=== PATIENT | female | born 1975 | race American Indian/Alaskan Native ===

== ENCOUNTER 2018-06-21 18:31 | Emergency (ER) | payer BC, OTHER ==
[2018-06-21 18:41] VITALS: BP 129/81
[2018-06-21] MEDS ORDERED: IBUPROFEN PO ONE (19:32)
[2018-06-21] MEDS ORDERED: DELTASONE PO ONE (19:32)
[2018-06-21] MEDS ORDERED: PROVENTIL IH ONE (19:32)
--- NOTE | 2018-06-21 19:58 | Emergency Department Report ---
Upper Respiratory HPI - HPI Chief Complaint: Upper Respiratory Infection Stated Complaint: CHEST PAIN/HEADACHE Time Seen by Provider: 06/21/18 19:30 Duration: 4 Days URI Symptoms: Rhinorrhea: Yes, Sore Throat: Yes, Ear Pain: No, Cough: Yes, Shortness of Breath: Yes, Sick Contacts: Yes, Unable to Take Fluids: No, Urine Output Abnormal: No, Listless Behavior: No Other History: Patient is a 43-year-old female who presents with URI symptoms cough fever chills sore throat shortness of breath wheezing for the past 5 days that was exacerbated by environmental exposure shows relieved by nothing cough is now causing chest pain with cough only prompting patient to report to ED for evaluation - Home Meds and Allergies Home Medications: Previous Rx's Medication Instructions Recorded Last Taken Type Pantoprazole [Protonix TAB] 40 mg PO QDAY #30 tablet 09/04/14 Unknown Rx Sucralfate [Carafate] 1 gm PO Q6HR #300 oral.liqd 09/04/14 Unknown Rx Starch 51%(Nf) [Anusol] 1 each AL TID #30 supp.rect 11/27/14 Unknown Rx ALBUTEROL Inhaler(NF) [VENTOLIN 2 puff IH Q4H PRN #1 inha 06/21/18 Unknown Rx Inhaler(NF)] Azithromycin [Zithromax Z-PIERCE] 250 mg PO DAILY #6 tab 06/21/18 Unknown Rx Benzonatate [Tessalon Perles] 100 mg PO Q8HR PRN #30 capsule 06/21/18 Unknown Rx Ibuprofen 800 mg PO TID PRN #30 tablet 06/21/18 Unknown Rx predniSONE [Deltasone] 40 mg PO QDAY 5 Days #10 tab 06/21/18 Unknown Rx Allergies/Adverse Reactions: Allergies Allergy/AdvReac Type Severity Reaction Status Date / Time morphine Allergy Hives Verified 11/27/14 21:11 ondansetron HCl Allergy Rash Verified 11/27/14 21:11 [From Zofran (as hydrochloride)] ED Review of Systems ROS: Stated complaint: CHEST PAIN/HEADACHE Other details as noted in HPI Constitutional: denies: chills, fever Eyes: denies: eye pain, eye discharge, vision change ENT: throat pain, congestion. denies: ear pain Respiratory: cough, shortness of breath, wheezing Cardiovascular: denies: chest pain, palpitations Endocrine: no symptoms reported Gastrointestinal: denies: abdominal pain, nausea, diarrhea Genitourinary: denies: urgency, dysuria, discharge Musculoskeletal: denies: back pain, joint swelling, arthralgia Skin: denies: rash, lesions Neurological: denies: headache, weakness, paresthesias Psychiatric: denies: anxiety, depression Hematological/Lymphatic: denies: easy bleeding, easy bruising ED Past Medical Hx - Past Medical History Hx GERD: Yes Additional medical history: ULCERS, anemia, hernia - Surgical History Additional Surgical History: GASTRIC BYPASS. BOWEL OBSTRUCTION - Social History Smoking Status: Never Smoker Substance Use Type: Alcohol - Medications Home Medications: Home Medications Medication Instructions Recorded Confirmed Last Taken Type Pantoprazole [Protonix TAB] 40 mg PO QDAY #30 tablet 09/04/14 Unknown Rx Sucralfate [Carafate] 1 gm PO Q6HR #300 oral.liqd 09/04/14 Unknown Rx Starch 51%(Nf) [Anusol] 1 each AL TID #30 supp.rect 11/27/14 Unknown Rx ALBUTEROL Inhaler(NF) [VENTOLIN 2 puff IH Q4H PRN #1 inha 06/21/18 Unknown Rx Inhaler(NF)] Azithromycin [Zithromax Z-PIERCE] 250 mg PO DAILY #6 tab 06/21/18 Unknown Rx Benzonatate [Tessalon Perles] 100 mg PO Q8HR PRN #30 capsule 06/21/18 Unknown Rx Ibuprofen 800 mg PO TID PRN #30 tablet 06/21/18 Unknown Rx predniSONE [Deltasone] 40 mg PO QDAY 5 Days #10 tab 06/21/18 Unknown Rx ED Bronchiolitis Physical Exam - Exam General: Vital signs noted. No distress. Alert and acting appropriately. HEENT: Yes Pharyngeal Erythema, Yes Rhinorrhea, No Conjuctival Injection, No Dry Mucous Membranes Ear: Neither TM Bulge, Neither TM Erythema, Neither EAC Discharge Neck: No Adenopathy, No Rigidity Lungs: Yes Good Air Exchange, Yes Wheezes, Yes Cough, No Clear Lung Sounds, No Stridor, No Nasal Flaring, No Retractions, No Use of Accessory Muscles Heart: Yes Regular, No Murmur Abdomen: Yes Normal Bowel Sounds, No Tenderness, No Peritoneal Signs Skin: No Rash, No Eczema Neurologic: Alert and oriented, no deficits. Musculoskeletal: Unremarkable. ED Bronchiolitis Tests - Testing Testing: CXR: Normal/Negative, Rapid Strep: Normal/Negative Treatments - Treaments Treatment: Improved Albuterol ED Physical Exam - General Limitations: No Limitations General appearance: alert, in no apparent distress - Head Head exam: Present: atraumatic, normocephalic - Eye Eye exam: Present: normal appearance - ENT ENT exam: Present: normal exam, mucous membranes moist - Neck Neck exam: Present: normal inspection - Respiratory Respiratory exam: Present: normal lung sounds bilaterally, wheezes, chest wall t enderness. Absent: respiratory distress, stridor, decreased breath sounds, prolonged expiratory - Cardiovascular Cardiovascular Exam: Present: regular rate, normal rhythm. Absent: systolic murmur, diastolic murmur, rubs, gallop - GI/Abdominal GI/Abdominal exam: Present: soft, normal bowel sounds - Rectal Rectal exam: Present: deferred - Extremities Exam Extremities exam: Present: normal inspection - Back Exam Back exam: Present: normal inspection, full ROM. Absent: tenderness, CVA tenderness (R), CVA tenderness (L), muscle spasm - Neurological Exam Neurological exam: Present: alert, oriented X3, CN II-XII intact, normal gait, reflexes normal. Absent: motor sensory deficit - Psychiatric Psychiatric exam: Present: normal affect, normal mood - Skin Skin exam: Present: warm, dry, intact, normal color. Absent: rash ED Course Vital Signs 06/21/18 18:36 Temperature 98.6 F Pulse Rate 75 Respiratory 18 Rate Blood Pressure 129/81 O2 Sat by Pulse 99 Oximetry ED Medical Decision Making - EKG Data EKG shows normal: sinus rhythm Rate: normal - EKG Data When compared to previous EKG there are: previous EKG unavailable (no previous ekg in system) Interpretation: normal EKG (NSR no ectopy no [place], interp by ed attending. ) - Radiology Data Radiology results: report reviewed, image reviewed FINAL REPORT EXAM: XR CHEST ROUTINE 2V HISTORY: chest pain cough TECHNIQUE: PA and lateral views of the chest Comparison: None FINDINGS: There is no evidence of infiltrate, pneumothorax or pleural fluid collection. The cardiomediastinal silhouette is normal in appearance. The bony structures are unremarkable. Visualization detail of the thoracic spine is limited. IMPRESSION: 1. No evidence of an acute pulmonary process. Go to the Transcribed By: ED Dictated By: PANKAJ MARIANO MD Electronically Authenticated By: PANKAJ MARIANO MD Signed Date/Time: 06/21/182131 - Medical Decision Making Sensation is normal no opacities or infiltrates, plan tx for Bronchitis will tx wtih zpack albuterol, ibuprofen, tessalon Pearles, will follow up with pcp in 2- 3 days return to emergency if symptoms worsen. pt verbalized agreement and understanding of same. Critical care attestation.: If time is entered above; I have spent that time in minutes in the direct care of this critically ill patient, excluding procedure time. ED Disposition Clinical Impression: Bronchitis Disposition: - TO HOME OR SELFCARE Is pt being admited?: No Does the pt Need Aspirin: No Condition: Stable Instructions: Acute Bronchitis (ED) Prescriptions: ALBUTEROL Inhaler(NF) [VENTOLIN Inhaler(NF)] 2 puff IH Q4H PRN #1 inha PRN Reason: wheezing shortness of breath Azithromycin [Zithromax Z-PIERCE] 250 mg PO DAILY #6 tab Benzonatate [Tessalon Perles] 100 mg PO Q8HR PRN #30 capsule PRN Reason: Cough Ibuprofen 800 mg PO TID PRN #30 tablet PRN Reason: pain predniSONE [Deltasone] 40 mg PO QDAY 5 Days #10 tab Forms: Work/School Release Form(ED) Time of Disposition: 21:51
--- NOTE | 2018-06-21 21:32 | XRay Report ---
FINAL REPORT EXAM: XR CHEST ROUTINE 2V HISTORY: chest pain cough TECHNIQUE: PA and lateral views of the chest Comparison: None FINDINGS: There is no evidence of infiltrate, pneumothorax or pleural fluid collection. The cardiomediastinal silhouette is normal in appearance. The bony structures are unremarkable. Visualization detail of the thoracic spine is limited. IMPRESSION: 1. No evidence of an acute pulmonary process. Go to the
== END 2018-06-21 22:03 | disposition home or self-care (01) ==
LOC: ED 18:31
DX: J40 Bronchitis, not specified as acute or chronic (principal); K21.9 Gastro-esophageal reflux disease without esophagitis; D64.9 Anemia, unspecified; Z88.6 Allergy status to analgesic agent; Z88.8 Allergy status to other drugs, medicaments and biological substances
CPT/HCPCS: 71046; 87116; 87430; 93005; 93010; 94640; 99284; J7512